=== PATIENT | male | born 1970 | race Caucasian/White ===

== ENCOUNTER 2016-11-25 02:47 | Emergency (ER) | payer SELFPAY ==
[~2016-11-25] VITALS: Ht 167.6 cm; Wt 83.3 kg
[~2016-11-25 02:47] MED LIST: MOTRIN800 MG PO; PEN-VEE K,VEET500 MG PO
[2016-11-25 03:23] VITALS: BP 134/85
== END 2016-11-25 03:24 | disposition home or self-care (01) ==
LOC: EME 02:47
DX: K40.90 Unilateral inguinal hernia, without obstruction or gangrene, not specified as recurrent (principal)
CPT/HCPCS: 99281; 99283

== ENCOUNTER 2017-01-04 08:56 | Day surgery (SDC) | payer OTHER ==
[~2017-01-04] VITALS: Ht 167.6 cm; Wt 81.6 kg
[2017-01-04 09:23] VITALS: BP 139/92
[2017-01-04] MEDS ORDERED: MOTRIN600 MG PO (12:03)
[2017-01-04] MEDS ORDERED: NORCO 5/3251 TABLET PO (12:03)
[2017-01-04 12:10] LABS: POINT-OF-CARE METER ID UU13113675
[2017-01-04 12:35] VITALS: BP 116/68
== END 2017-01-04 14:00 | disposition home or self-care (01) ==
LOC: SDC 08:56
PROVIDERS: Surgery
PROC: 0YU60JZ Supplement Left Inguinal Region with Synthetic Substitute, Open Approach (ICD-10-PCS; principal; 2017-01-04)
DX: K40.90 Unilateral inguinal hernia, without obstruction or gangrene, not specified as recurrent (principal); E11.9 Type 2 diabetes mellitus without complications; F17.220 Nicotine dependence, chewing tobacco, uncomplicated
CPT/HCPCS: 82948; C1781; J0690; J1170; J1885; J2175; J2250; J2405; J3010; S0020